=== PATIENT | male | born 1955 | race Caucasian/White ===

== ENCOUNTER 2021-02-14 00:58 | Emergency (ER) | payer BC, OTHER ==
[~2021-02-14] VITALS: Ht 167.6 cm; Wt 72.6 kg
[~2021-02-14 00:58] MED LIST: ATEN-41 PO
[2021-02-14 01:30] VITALS: BP_SYST 153
--- NOTE | 2021-02-14 05:50 | NUR ---
Patient ambulatory to bed 4 for evaluation
--- NOTE | 2021-02-14 06:10 | NUR ---
PT ARRIVED TO ER FOR ANXIETY. PT STATED HE HASNT SLEPT IN OVER 30 HOURS AND WANTS TO SLEEP. PT IS A&OX4. NO OTHRE COMPLAINTS.
--- NOTE | 2021-02-14 06:25 | NUR ---
ER at bedside examining patient.
[2021-02-14] MEDS ORDERED: HYDR50TA61 PO (06:29)
[2021-02-14] MEDS ORDERED: MELA10TA2 PO (06:29)
--- NOTE | 2021-02-14 06:40 | NUR ---
PT GIVEN HYDROXYZINE ORAL SOLUTION DUE TO NOT BEING AVAILABLE IN THE OUR ER. CHANGE NOT IN eMAR
--- NOTE | 2021-02-14 06:44 | NUR ---
Patient given written and verbal discharge instructions and verbalizes understanding. ER MD discussed with patient the results and treatment provided. Patient in stable condition. ID arm band removed. Rx of HYDROXYZINE, MELATONIN given. Patient educated on pain management and to follow up with PMD. Pain Scale 0/10. Opportunity for questions provided and answered. Medication side effect fact sheet provided.
[2021-02-14 06:57] VITALS: BP_SYST 153
== END 2021-02-14 06:44 | disposition home or self-care (01) ==
LOC: SED 00:58
DX: G47.00 Insomnia, unspecified (principal); F41.9 Anxiety disorder, unspecified; I10 Essential (primary) hypertension; Z88.2 Allergy status to sulfonamides; Z79.2 Long term (current) use of antibiotics
CPT/HCPCS: 99283